=== PATIENT | female | born 1995 | race Caucasian/White ===

== ENCOUNTER 2016-06-27 06:42 | Emergency (ER) | payer OTHER ==
[~2016-06-27] VITALS: Ht 160 cm; Wt 58.9 kg
[2016-06-27 06:46] VITALS: Ht 160 cm; Wt 58.9 kg
[2016-06-27] MEDS ORDERED: KETOROLAC TROMETHAMINE 30 MG/ML VIAL IV STA (07:08)
[2016-06-27] MEDS ORDERED: SODIUM CHLORIDE 0.9% 500ML 500 ML IV STA (07:08)
[2016-06-27] MEDS ORDERED: ALBUT/IPRATROP 3MG/0.5MG NEB 3 ML VIAL INH STA (07:08)
[2016-06-27] MEDS ORDERED: SODIUM CHLORIDE 0.9% 1000ML 1,000 ML IV STA (07:08)
--- NOTE | 2016-06-27 07:13 | EMERGENCY ROOM VISIT NOTE ---
History Report prepared by Corrina: Santo Taylor Under the Supervision of: Dr. Chaparrita Land M.D. First contact with patient: 06:54 Chief Complaint: FLU LIKE SX Stated Complaint: COUGH,FEVER,SORE CHEST,VOMITING History of Present Illness The patient is a 21 year old female who presents to the Emergency Room with complaints of a persistent cough since she woke up yesterday. The patient experiences chest soreness after coughing only. The patient also complains of a fever that reached 101 and general fatigue. The patient has been taking Advil, and her last dose was around midnight. The patient did not have a flu shot this year. Her roommate is currently being treated for mono. The patient denies any medical problems. She denies the possibility of secondary to being on her period. Source of History: patient Onset: yesterday Position: other (respiratory) Quality: other (cough) Timing: other (persistent) Associated Symptoms: + chest pain (only with coughing), + fevers Review of Systems See HPI for pertinent positives & negatives. A total of 10 systems reviewed and were otherwise negative. Past Medical & Surgical Medical Problems: (1) No known health problems Family History Hypertension Social History Smoking Status: Never Smoker Marital Status: single Housing Status: lives with roommate Occupation Status: [employer] Current/Historical Medications Scheduled Albuterol Hfa (Ventolin Hfa), 2-4 PUFFS INH Q6H Oseltamivir (Tamiflu), 75 MG PO BID Allergies Coded Allergies: No Known Allergies (Unverified , 06/27/16) Physical Exam Vital Signs Date Time Temp Pulse Resp B/P Pulse Ox O2 Delivery O2 Flow Rate FiO2 06/27/16 11:20 83 18 106/61 98 06/27/16 09:50 89 18 107/56 98 Room Air 06/27/16 09:12 96 18 102/60 98 Room Air 06/27/16 08:56 37.1 96 18 83/49 98 Room Air 06/27/16 06:46 37.9 138 16 95 Room Air Physical Exam Vital signs reviewed. General: Well-appearing female, in no significant distress. Patient noted to be febrile. HEENT: No scleral icterus, PERRLA, neck supple. Atraumatic. Cardiovascular: Regular rate and rhythm, no extra sounds. Pulmonary: Clear to auscultation bilaterally, normal work of breathing. Abdomen: Soft, nontender, nondistended, positive bowel sounds. Musculoskeletal: Atraumatic, no peripheral edema. Neurologic: Patient awake alert and oriented x 3, full strength in all 4 extremities. Cranial nerves 2 through 12 grossly intact. Skin: Warm, dry, no rash Medical Decision & Procedures ER Provider Diagnostic Interpretation: X-ray results as stated below per interpretation by me and the radiologist: TWO VIEW CHEST CLINICAL HISTORY: Cough. Atypical chest pain. FINDINGS: PA and lateral chest radiographs are obtained. No prior studies are available for comparison at the time of dictation. The cardiomediastinal silhouette is unremarkable. The lungs and pleural spaces are clear. There is no pneumothorax. The bony thorax appears intact. IMPRESSION: No active disease in the chest. Electronically signed by: Travis Suero M.D. 06/27/2016 8:06 AM Dictated Date/Time: 06/27/2016 8:05 AM Laboratory Results 06/27/16 07:28 Red Blood Count 4.12, Mean Corpuscular Volume 89.3, Mean Corpuscular Hemoglobin 32.0, Mean Corpuscular Hemoglobin Concent 35.9, Mean Platelet Volume 9.7, Neutrophils (%) (Auto) 87.4, Lymphocytes (%) (Auto) 6.5, Monocytes (%) (Auto) 4.9, Eosinophils (%) (Auto) 0.8, Basophils (%) (Auto) 0.3, Neutrophils # (Auto) 8.41, Lymphocytes # (Auto) 0.63, Monocytes # (Auto) 0.47, Eosinophils # (Auto) 0.08, Basophils # (Auto) 0.03 06/27/16 07:28 Test 06/27/16 07:28 White Blood Count 9.63 K/uL (4.8-10.8) Red Blood Count 4.12 M/uL (4.2-5.4) Hemoglobin 13.2 g/dL (12.0-16.0) Hematocrit 36.8 % (37-47) Mean Corpuscular Volume 89.3 fL (80-100) Mean Corpuscular Hemoglobin 32.0 pg (25-34) Mean Corpuscular Hemoglobin Concent 35.9 g/dl (32-36) Platelet Count 284 K/uL (130-400) Mean Platelet Volume 9.7 fL (7.4-10.4) Neutrophils (%) (Auto) 87.4 % Lymphocytes (%) (Auto) 6.5 % Monocytes (%) (Auto) 4.9 % Eosinophils (%) (Auto) 0.8 % Basophils (%) (Auto) 0.3 % Neutrophils # (Auto) 8.41 K/uL (1.4-6.5) Lymphocytes # (Auto) 0.63 K/uL (1.2-3.4) Monocytes # (Auto) 0.47 K/uL (0.11-0.59) Eosinophils # (Auto) 0.08 K/uL (0-0.5) Basophils # (Auto) 0.03 K/uL (0-0.2) RDW Standard Deviation 41.6 fL (36.4-46.3) RDW Coefficient of Variation 12.8 % (11.5-14.5) Immature Granulocyte % (Auto) 0.1 % Immature Granulocyte # (Auto) 0.01 K/uL (0.00-0.02) Anion Gap 11.0 mmol/L (3-11) Est Creatinine Clear Calc Drug Dose 87.9 ml/min Estimated GFR () 116.0 Estimated GFR (Non- 100.1 BUN/Creatinine Ratio 14.0 (10-20) Calcium Level 8.5 mg/dl (8.5-10.1) Total Bilirubin 0.5 mg/dl (0.2-1) Direct Bilirubin 0.2 mg/dl (0-0.2) Aspartate Amino Transf (AST/SGOT) 14 U/L (15-37) Alanine Aminotransferase (ALT/SGPT) 15 U/L (12-78) Alkaline Phosphatase 62 U/L (45-117) Total Protein 7.0 gm/dl (6.4-8.2) Albumin 3.7 gm/dl (3.4-5.0) Influenza Type A (RT-PCR) POS for Influ A (NEG) Influenza Type B (RT-PCR) Neg for Influ B (NEG) Laboratory results per my review. Medications Administered Medications (Trade) Dose Ordered Sig/Hortencia Route Start Time Stop Time Status Last Admin Dose Admin Sodium Chloride 500 ml @ 999 mls/hr Q31M STAT IV 06/27/16 07:08 06/27/16 07:38 DC 06/27/16 07:08 999 MLS/HR Sodium Chloride (Nss 1000ml) 1,000 ml @ 200 mls/hr Q5H STAT IV 06/27/16 07:08 06/27/16 12:07 DC 06/27/16 07:08 200 MLS/HR Ketorolac Tromethamine (Toradol Inj) 30 mg NOW STAT IV 06/27/16 07:08 06/27/16 07:11 DC 06/27/16 07:23 30 MG Albuterol/ Ipratropium (Duoneb) 3 ml NOW STAT INH 06/27/16 07:08 06/27/16 07:11 DC 06/27/16 07:24 3 ML ED Course 0707: Past medical records reviewed. The patient was evaluated in room B10. A complete history and physical examination was performed. 0708: DuoNeb 3 ml INH, Toradol 30 mg IV, NSS 1000 ml @ 200 mls/hr, NSS 500 ml @ 999 mls/hr. 1045: Reassessed the patient. Discussed the findings with her. She verbalized understanding and agreement of the treatment plan. The patient is ready for discharge. Medical Decision Differential diagnosis: Influenza, other viral illness, strep pharyngitis, pneumonia, urinary tract infection, metabolic abnormality, medication effect, cellulitis, meningitis, intra-abdominal source. This patient was evaluated and appeared to be in some discomfort. She is noted to be febrile. The patient was medicated with IV Toradol and hydrated with normal saline solution. She was given a DuoNeb treatment. Chest x-ray was performed and is negative. Laboratory work reveals a normal white blood cell count. Patient is positive for influenza A. She was advised of the findings and started on Tamiflu. Patient was discharged with a prescription for Tamiflu and albuterol. She will follow-up with [facility] for reevaluation this week and return to the ER for worsening of symptoms or any medical concerns. Impression Primary Impression: Influenza A Scribe Attestation The scribe's documentation has been prepared under my direction and personally reviewed by me in its entirety. I confirm that the note above accurately reflects all work, treatment, procedures, and medical decision making performed by me. Departure Information Dispostion Home / Self-Care Prescriptions Albuterol Hfa (VENTOLIN HFA) 200 Puffs/52133 Mcg Aers 2-4 PUFFS INH Q6H, #1 INHALER Prov: Chaparrita Land M.D. 06/27/16 Oseltamivir (Tamiflu) 75 Mg Cap 75 MG PO BID, #10 CAP Prov: Chaparrita Land M.D. 06/27/16 Referrals No Doctor, Assigned (PCP) Forms HOME CARE DOCUMENTATION FORM, IMPORTANT VISIT INFORMATION Patient Instructions My [facility] Additional Instructions Diagnosis: Influenza A Tamiflu 75 mg twice a day for 5 days. Albuterol 2 puffs every 4 hours as needed for wheezing or cough. Tylenol 650 mg every 6 hours as needed for fever. Ibuprofen 600 mg every 6 hours as needed for pain or fever. Drink plenty of clear fluids. Follow-up with your physician this week for reevaluation. Return to the ER for worsening of symptoms or any medical concerns.
[2016-06-27 07:42] LABS: BASO % 0.3 %; BASO ABS # 0.03 K/uL (0-0.2); COMPLETE YES; EOS % 0.8 %; HEMATOCRIT 36.8 % (37-47); IG% 0.1 %; LYMPH % 6.5 %; LYMPH ABS # 0.63 K/uL (1.2-3.4); MEAN CELL VOLUME 89.3 fL (80-100); MEAN CORPUSCULAR HGB CONC 35.9 g/dl (32-36); MEAN PLATELET VOLUME 9.7 fL (7.4-10.4); MONO % 4.9 %; NEUT % 87.4 %; PLATELET COUNT 284 K/uL (130-400); RED BLOOD COUNT 4.12 M/uL (4.2-5.4); WHITE BLOOD COUNT 9.63 K/uL (4.8-10.8)
[2016-06-27 08:02] LABS: CALCIUM 8.5 mg/dl (8.5-10.1); CREATININE 0.83 mg/dl (0.60-1.20); POTASSIUM 3.3 mmol/L (3.5-5.1)
--- NOTE | 2016-06-27 08:07 | DIAGNOSTIC IMAGING REPORT ---
TWO VIEW CHEST CLINICAL HISTORY: Cough. Atypical chest pain. FINDINGS: PA and lateral chest radiographs are obtained. No prior studies are available for comparison at the time of dictation. The cardiomediastinal silhouette is unremarkable. The lungs and pleural spaces are clear. There is no pneumothorax. The bony thorax appears intact. IMPRESSION: No active disease in the chest. Electronically signed by: Travis Suero M.D. 06/27/2016 8:06 AM Dictated Date/Time: 06/27/2016 8:05 AM
[2016-06-27 08:56] VITALS: TEMP 37.1
[2016-06-27 09:48] LABS: INFLUENZA B PCR Neg for Influ B (NEG)
[2016-06-27 09:50] LABS: INFLUENZA A PCR POS for Influ A (NEG)
[2016-06-27] MEDS ORDERED: VNTHFA/IN INH (11:13)
[2016-06-27] MEDS ORDERED: OSEL75CA12 PO (11:13)
[2016-06-27 11:20] VITALS: BP 106/61; PULSE 83; O2SAT 98
== END 2016-06-27 11:21 | disposition home or self-care (01) ==
LOC: C.EDB 06:43
DX: J11.1 Influenza due to unidentified influenza virus with other respiratory manifestations (principal); Z82.49 Family history of ischemic heart disease and other diseases of the circulatory system